=== PATIENT | female | born 1940 | race Caucasian/White ===

== ENCOUNTER 2021-09-30 15:19 | Inpatient (IN) | payer MEDICARE, BC ==
[2021-09-30] MEDS ORDERED: Acetaminophen 325 MG TAB PO PRN (18:11)
[2021-09-30] MEDS ORDERED: Ondansetron ODT 4 MG TAB PO PRN (18:11)
[2021-09-30] MEDS ORDERED: Dextrose 50% Abboject 50 ML SYRINGE SLOW IVP PRN (18:12)
[2021-09-30] MEDS ORDERED: Nitroglycerin 0.4 MG TAB (25 Tab Bottle) SL PRN (18:12)
[2021-09-30] MEDS ORDERED: Dextrose 5% in Water 1,000 ML IV PRN (18:12)
[2021-09-30] MEDS ORDERED: HumaLOG 300 UNITS/3 ML VIAL SC PRN ×2 (18:12)
[2021-09-30] MEDS ORDERED: Electrolyte Replacement Protocol 1 EACH FS SCH (18:30)
[2021-09-30] MEDS ORDERED: Furosemide 40 MG/4 ML VIAL SLOW IVP SCH (18:30)
[2021-09-30] MEDS ORDERED: Potassium Chloride 20 MEQ TAB PO SCH (18:45)
[2021-09-30] MEDS ORDERED: Electrolyte Replacement Protocol FS PRN (19:00)
[2021-09-30 19:45] LABS: Troponin I Less than 0.010 ng/mL (< 0.028)
[2021-09-30] MEDS: Atorvastatin Calcium 40 MG TAB PO SCH (22:08)
[2021-09-30] MEDS: rOPINIRole HCl 0.5 MG TAB PO SCH (22:09)
[2021-09-30] MEDS: Gabapentin 300 MG CAP PO SCH (22:09)
[2021-09-30] MEDS: HumaLOG 300 UNITS/3 ML VIAL SC PRN (22:11)
[2021-09-30 23:21] LABS: Anion Gap 17 mmol/L (10-20); BUN (Urea Nitrogen) 42 mg/dL (9.8-20.1); Calc. Creatinine Clearance 0 mL/min (70-130); Calcium 8.7 mg/dL (7.8-10.44); Carbon Dioxide 23 mmol/L (23-31); Chloride 99 mmol/L (98-107); Glucose 324 mg/dL (83-110); Potassium 3.6 mmol/L (3.5-5.1); Sodium 135 mmol/L (136-145)
[2021-09-30 23:26] LABS: Troponin I 0.017 ng/mL (< 0.028)
[2021-09-30 23:59] VITALS: BMI 30.9
[2021-10-01] MEDS: Heparin 5,000 UNITS/ML VIAL SC SCH ×4 (01:10→21:22)
[2021-10-01] MEDS: Levothyroxine Sodium 100 MCG TAB PO SCH (06:07)
[2021-10-01 06:20] LABS: #Eosinphils 0.2 thou/uL (0.0-0.7); #Lymphocytes 1.1 thou/uL (1.20-3.40); #Monocytes 0.8 thou/uL (0.11-0.59); #Neutrophils 4.8 thou/uL (1.40-6.50); %Basophils 0.2 % (0.0-1.0); %Eosinophils 2.5 % (0.0-10.0); %Lymphocytes 16.3 % (21.0-51.0); %Monocytes 11.8 % (0.0-10.0); %Neutrophils 69.3 % (42.0-75.0); Anion Gap 14 mmol/L (10-20); BUN (Urea Nitrogen) 40 mg/dL (9.8-20.1); Calc. Creatinine Clearance 32 mL/min (70-130); Calcium 8.6 mg/dL (7.8-10.44); Carbon Dioxide 24 mmol/L (23-31); Cardiac Risk 5.1 (Less than 4.5); Chloride 102 mmol/L (98-107); Cholesterol 137 mg/dl (< 200 Desired); Glucose 284 mg/dL (83-110); HDL Cholesterol 27 mg/dL (>60 Neg Risk); Hemoglobin 10.6 g/dL (12.0-16.0); Hemoglobin A1c 9.4 % (4.0-6.0); LDL Cholesterol, Calculated 79 mg/dL; Magnesium 1.8 mg/dL (1.6-2.6); Mean Corpuscular HGB CONC 33.9 g/dL (32.0-36.0); Mean Corpuscular Hemoglobin 32.3 pg (27.0-31.0); Mean Corpuscular Volume 95.3 fL (78.0-98.0); Mean Platelet Volume 8.5 fL (7.4-10.4); Platelet Count 208 thou/uL (130-400); Potassium 3.1 mmol/L (3.5-5.1); Sodium 137 mmol/L (136-145); Triglycerides 154 mg/dL (Less than 150); White Blood Cell (WBC) Count 6.9 thou/uL (4.8-10.8)
[2021-10-01] MEDS ORDERED: Magnesium 2 GM/50 ML(in water) 2 GM in Premix Bag 1 BAG IVPB SCH (08:00)
[2021-10-01] MEDS ORDERED: Potassium Chloride 20 MEQ TAB PO SCH (08:00)
[2021-10-01] MEDS ORDERED: rOPINIRole HCl 0.25 MG TAB PO SCH (09:00)
[2021-10-01] MEDS ORDERED: Gabapentin 300 MG CAP PO SCH (09:00)
[2021-10-01] MEDS ORDERED: Aspirin 81 mg Enteric Coated Tablet PO SCH (09:00)
[2021-10-01] MEDS: Furosemide 40 MG/4 ML VIAL SLOW IVP SCH (11:13)
[2021-10-01] MEDS: Carvedilol 6.25 MG TAB PO SCH ×2 (11:14→17:20)
[2021-10-01] MEDS: Lantus 1000 UNITS/10 ML VIAL SC SCH (11:15)
[2021-10-01] MEDS: rOPINIRole HCl 0.5 MG TAB PO SCH ×3 (11:15→21:22)
[2021-10-01] MEDS: HumaLOG 300 UNITS/3 ML VIAL SC SCH ×2 (11:33→17:20)
[2021-10-01] MEDS: HumaLOG 300 UNITS/3 ML VIAL SC PRN ×3 (11:34→21:22)
[2021-10-01] MEDS: Aspirin Chewable 81 MG TAB PO SCH (11:37)
[2021-10-01] MEDS: Gabapentin 300 MG CAP PO SCH ×2 (11:38→21:21)
[2021-10-01] MEDS: Amlodipine 10 MG TAB PO SCH (17:19)
[2021-10-01] MEDS ORDERED: Carvedilol 6.25 MG TAB PO SCH (21:00)
[2021-10-01] MEDS ORDERED: Atorvastatin Calcium 40 MG TAB PO SCH (21:00)
[2021-10-01] MEDS: Atorvastatin Calcium 40 MG TAB PO SCH (21:21)
[2021-10-02 04:23] LABS: #Eosinphils 0.3 thou/uL (0.0-0.7); #Lymphocytes 1.4 thou/uL (1.20-3.40); #Monocytes 0.8 thou/uL (0.11-0.59); #Neutrophils 3.9 thou/uL (1.40-6.50); %Basophils 0.4 % (0.0-1.0); %Eosinophils 4.5 % (0.0-10.0); %Lymphocytes 22.2 % (21.0-51.0); %Monocytes 12.6 % (0.0-10.0); %Neutrophils 60.3 % (42.0-75.0); Hemoglobin 10.8 g/dL (12.0-16.0); Mean Corpuscular HGB CONC 33.3 g/dL (32.0-36.0); Mean Corpuscular Hemoglobin 31.9 pg (27.0-31.0); Mean Platelet Volume 8.1 fL (7.4-10.4); Platelet Count 210 thou/uL (130-400); Red Blood Cell (RBC) Count 3.39 mill/uL (4.20-5.40); White Blood Cell (WBC) Count 6.4 thou/uL (4.8-10.8)
[2021-10-02 04:44] LABS: Anion Gap 12 mmol/L (10-20); BUN (Urea Nitrogen) 38 mg/dL (9.8-20.1); Calc. Creatinine Clearance 33 mL/min (70-130); Calcium 8.8 mg/dL (7.8-10.44); Carbon Dioxide 30 mmol/L (23-31); Chloride 102 mmol/L (98-107); Glucose 137 mg/dL (83-110); Potassium 3.2 mmol/L (3.5-5.1); Sodium 141 mmol/L (136-145)
[2021-10-02] MEDS ORDERED: Potassium Chloride 20 MEQ TAB PO SCH ×2 (05:30→17:15)
[2021-10-02] MEDS ORDERED: Levothyroxine Sodium 100 MCG TAB PO SCH (06:00)
[2021-10-02] MEDS: Levothyroxine Sodium 100 MCG TAB PO SCH (06:19)
[2021-10-02] MEDS: rOPINIRole HCl 0.5 MG TAB PO SCH ×3 (09:21→20:58)
[2021-10-02] MEDS: Cholecalciferol 1,000 UNITS (25 MCG) TAB PO SCH (09:21)
[2021-10-02] MEDS: Carvedilol 6.25 MG TAB PO SCH ×2 (09:21→17:28)
[2021-10-02] MEDS: Amlodipine 10 MG TAB PO SCH (09:21)
[2021-10-02] MEDS: Gabapentin 300 MG CAP PO SCH ×2 (09:21→20:58)
[2021-10-02] MEDS: Aspirin Chewable 81 MG TAB PO SCH (09:21)
[2021-10-02] MEDS: HumaLOG 300 UNITS/3 ML VIAL SC SCH ×3 (09:22→17:28)
[2021-10-02] MEDS: Heparin 5,000 UNITS/ML VIAL SC SCH ×3 (09:22→20:57)
[2021-10-02] MEDS: Furosemide 40 MG/4 ML VIAL SLOW IVP SCH (09:22)
[2021-10-02] MEDS: Lantus 1000 UNITS/10 ML VIAL SC SCH (09:23)
[2021-10-02] MEDS: HumaLOG 300 UNITS/3 ML VIAL SC PRN (11:31)
[2021-10-02] MEDS ORDERED: Furosemide 40 MG/4 ML VIAL SLOW IVP SCH (17:15)
[2021-10-02] MEDS: Latanoprost 0.005% Ophth Soln 2.5 ml Bottle EA EYE SCH (20:17)
[2021-10-02] MEDS: Atorvastatin Calcium 40 MG TAB PO SCH (20:57)
[2021-10-03] MEDS: Levothyroxine Sodium 100 MCG TAB PO SCH (05:23)
[2021-10-03] MEDS: rOPINIRole HCl 0.5 MG TAB PO SCH ×2 (08:22→13:58)
[2021-10-03] MEDS: Cholecalciferol 1,000 UNITS (25 MCG) TAB PO SCH (08:23)
[2021-10-03] MEDS: Carvedilol 6.25 MG TAB PO SCH (08:23)
[2021-10-03] MEDS: Gabapentin 300 MG CAP PO SCH (08:23)
[2021-10-03] MEDS: Heparin 5,000 UNITS/ML VIAL SC SCH ×2 (08:24→13:59)
[2021-10-03] MEDS: Amlodipine 10 MG TAB PO SCH (08:25)
[2021-10-03] MEDS: Latanoprost 0.005% Ophth Soln 2.5 ml Bottle EA EYE SCH (08:28)
[2021-10-03] MEDS: Aspirin Chewable 81 MG TAB PO SCH (08:29)
[2021-10-03] MEDS ORDERED: Regadenoson 0.4 MG/5 ML SYRINGE ONE (09:05)
[2021-10-03] MEDS: Furosemide 40 MG/4 ML VIAL SLOW IVP SCH (11:44)
[2021-10-03] MEDS: HumaLOG 300 UNITS/3 ML VIAL SC SCH ×2 (11:45→11:55)
[2021-10-03] MEDS: Lantus 1000 UNITS/10 ML VIAL SC SCH (11:46)
[2021-10-03 12:27] VITALS: BP 135/63; TEMP 97.7
[2021-10-03] MEDS ORDERED: Furosemide 40 MG TAB PO PRN (13:49)
[2021-10-04] MEDS ORDERED: FLU VACC QS2021-22(65YR UP)/PF 240 MCG/0.7 ML SYRINGE IM ONE (09:00)
== END 2021-10-03 16:00 | disposition home or self-care (01) | DRG 291 ==
LOC: ERS 15:19 → 2NO 16:45 → OBSVTOIN 10-02 12:38
PROVIDERS: ADMIT Internal Medicine; ATTEND Internal Medicine
DX: I13.0 Hypertensive heart and chronic kidney disease with heart failure and stage 1 through stage 4 chronic kidney disease, or unspecified chronic kidney disease (principal); I50.23 Acute on chronic systolic (congestive) heart failure; E78.5 Hyperlipidemia, unspecified; I25.10 Atherosclerotic heart disease of native coronary artery without angina pectoris; E03.9 Hypothyroidism, unspecified; G25.81 Restless legs syndrome; E11.22 Type 2 diabetes mellitus with diabetic chronic kidney disease; E11.42 Type 2 diabetes mellitus with diabetic polyneuropathy; Z20.822 Contact with and (suspected) exposure to COVID-19; E87.6 Hypokalemia; I44.30 Unspecified atrioventricular block; N18.30 Chronic kidney disease, stage 3 unspecified; I25.2 Old myocardial infarction; Z95.1 Presence of aortocoronary bypass graft; Z79.4 Long term (current) use of insulin; Z88.8 Allergy status to other drugs, medicaments and biological substances; Z82.3 Family history of stroke
CPT/HCPCS: 36415; 36416; 78451; 78452; 80048; 80061; 83036; 83735; 84443; 85025; 93005; 93017; 93306; 93970; 94760; 96374; 96375; 96376; A9500; A9540; G0378; J1644; J1815; J1940; J2785; J3475